=== PATIENT | male | born 1985 | race Caucasian/White ===

== ENCOUNTER 2021-01-18 00:01 | Emergency (ER) | payer MEDICAID, SELFPAY ==
[2021-01-18 00:10] VITALS: BP 166/90; PULSE 74; RESP 16; O2SAT 98; BMI 32.6
--- NOTE | 2021-01-18 00:17 | ED_ITS ---
HPI - General Adult General Chief complaint: ETOH/Substance Use Stated complaint: drug use Time Seen by Provider: 01/18/21 00:15 Source: patient Mode of arrival: EMS Limitations: no limitations History of Present Illness HPI narrative: Patient smokes marijuana denies any substance abuse no alcohol use tonight brought by EMS after patient was picked up by police wandering through the neighborhood knocking on the doors Related Data Allergies Allergy/AdvReac Type Severity Reaction Status Date / Time No Known Allergies Allergy Unverified 02/13/20 15:29 [No Known Allergies*] Review of Systems Review of Systems: Yes all other systems are reviewed and are negative [facility] Social History Social History Advance Directives: No Physical Exam Vital Signs: Vital Signs: Last Vital Signs Pulse 74 01/18/21 00:10 Resp 16 01/18/21 00:10 BP 166/90 H 01/18/21 00:10 Pulse Ox 98 01/18/21 00:10 Body Mass Index 32.6 Appearance: Alert. Oriented X3. No acute distress. Eyes: PERRLA, No Nystagmus ENT: Pharynx normal. Oral Mucosa moist Neck: Normal inspection. Neck supple. CVS: Normal heart rate and rhythm. Pulses normal. Respiratory: No respiratory distress. Equal air entry bilateral, no wheezing/rales/rhonchi Abdomen: Soft and nontender. Bowel sounds are present, no mass palpable, no CVA tenderness Skin: Skin warm and dry. Normal skin color. Normal skin turgor. Extremities: No lower extremity edema. No calf tenderness Neuro: Oriented X 3. No motor deficit. No sensory deficit.No cerebellar signs , cranial nerves II-XII intact normal gait Medical Decision Making MDM Narrative Medical decision making narrative: Patient walking in a straight line as any substance says he used cannabis only tonight feels safe to go home no history of psychological problems. No hallucination or delusion will discharge patient Discharge Plan Discharge Clinical Impression: Cannabis abuse Patient Disposition: Home, Self-Care Instructions: Cannabis Abuse (ED) Additional Instructions: Follow-up with detox if any concern
== END 2021-01-18 00:36 | disposition home or self-care (01) ==
LOC: HO.ED 00:27
PROVIDERS: Emergency Provider Internal Medicine
DX: F12.19 Cannabis abuse with unspecified cannabis-induced disorder (principal); Z71.51 Drug abuse counseling and surveillance of drug abuser
CPT/HCPCS: 99283